=== PATIENT | female | born 1985 | race Caucasian/White ===

== ENCOUNTER 2016-10-16 10:28 | Emergency (ER) | payer OTHER ==
[~2016-10-16] VITALS: Ht 162.6 cm; Wt 88.5 kg
[~2016-10-16 10:28] MED LIST: AUGMENTIN 875-1 EACH PO; NORCO 5-325 TA1 EACH PO; PERCOCET 5-3251 EACH PO
[2016-10-16 10:37] VITALS: BP 126/84
--- NOTE | 2016-10-16 11:09 | ED THROAT/DENTAL COMPLAINT ---
History of Present Illness General Chief Complaint: Sore Throat, Dental Pain Stated Complaint: TOOTH ACHE X 2 DAYS Source: patient, old records Exam Limitations: no limitations Vital Signs & Intake/Output Vital Signs & Intake/Output Vital Signs Date Time Temp Pulse Resp B/P Pulse O2 O2 Flow FiO2 Ox Delivery Rate 10/16 1037 98.3 90 20 126/84 98 Room Air ED Intake and Output 10/17 0000 10/16 1200 Intake Total Output Total Balance Patient 195 lb Weight Allergies Coded Allergies: metoclopramide (From REGLAN) (Intermediate, ANXIETY 03/18/16) ondansetron (From ZOFRAN ( HYDROCHLORIDE)) (Intermediate, PANIC ATTACKS ) prochlorperazine (From COMPAZINE) (Intermediate, PANIC ATTACKS 03/18/16) Reconcile Medications Amoxicillin/Potassium Clav (Augmentin 875-125 Tablet) 875 MG-125 MG TABLET 1 TAB PO BID dental Oxycodone HCl/Acetaminophen (Percocet 5-325 MG Tablet) 5 MG-325 MG TABLET 1 TAB PO BID PRN breakthrough pain Triage Note: PT TO ED C/O UPPER LEFT DENTAL PAIN SINCE SUNDAY. "I THINK IT'S INFECTED". Triage Nurses Notes Reviewed? yes Onset: Abrupt Duration: day(s): (2), constant Timing: recent history Injury Environment: home Severity: moderate Severity Numbers: 7 Modifying Factors: Worsens With: eating. Associated Symptoms: denies : No Patient currently breastfeeds: No HPI: 31-year-old female presents to ER for evaluation complaining of left upper dental pain for the past 3 days. Patient states she's had a history of similar pain in the past she called her dentist that however they were closed. Pain is worse with cold air eating and palpation she's been taking Advil without improvement. No difficulty swallowing no sore throat. No fever no chills she denies any other symptoms that aren't no other modifying factors or associated symptoms or radiation of pain. (CLEMENTINA RHOADES,KIKI) Past History Travel History Traveled to [place] past 21 day No Medical History Any Pertinent Medical History? see below for history Neurological: NONE EENT: NONE Cardiovascular: NONE Respiratory: asthma Gastrointestinal: NONE Hepatic: NONE Renal: NONE Musculoskeletal: NONE Psychiatric: NONE Endocrine: NONE Blood Disorders: NONE Cancer(s): NONE Surgical History Surgical History: N Psychosocial History What is your primary language Thai Tobacco Use: Current Daily Use Daily Tobacco Use Amount/Type: => 5 Cigarettes daily ETOH Use: denies use Illicit Drug Use: denies illicit drug use Family History Hx Contributory? No (KIKI FLORES) Review of Systems Review of Systems Constitutional: Reports: see HPI. All Other Systems: Reviewed and Negative Comments Review of systems: See HPI, All other systems negative. Constitutional, no chills no fever, no malaise HEENT: No visual changes no sore throat no congestion Cardiovascular: No chest pain , no palpitation Skin, no rashes, no change in skin Respiratory: No dyspnea no cough no sputum GI: No nausea no vomiting : No dysuria Muscle skeletal: No joint pain, no back pain, no neck pain, Neurologic: No numbness no headache Psych: No stress Heme/endocrine: No bruising no bleeding Immunology: No lymphadenopathy (KIKI FLORES) Physical Exam Physical Exam General Appearance: well developed/nourished, no apparent distress, alert, awake , comfortable Mouth/Throat: pharynx normal Comments: Well-developed well-nourished patient in no apparent distress. Head/Face: Atraumatic, no maxillary/frontal sinus tenderness, no facial swelling Eyes: PERRL, EOMI, no conjunctival injection Ear:External auditory canals clear Nose: atraumatic.Normal inspection Throat: Moist mucous membranes.Pharynx normal. No pharyngeal erythema/exudate seen. No stridor/drooling or assymetry. No swelling or edema. Poor dentition, no abscess Neck: Supple, no lymphadenopathy, FROM Back: FROM, Nontender Cardiovascular: Regular rate and rhythms no murmurs Respiratory: No respiratory distress. Patient speaking in full complete sentences. Breath sounds clear to auscultation bilaterally: NO W/R/R Extremities: full range of motion Neuro: Alert and oriented x3 Skin: Warm & dry;No appreciable rash on exposed skin Psych: Mood affect normal, normal memory normal judgment. Core Measures ACS in differential dx? No Severe Sepsis Present: No Septic Shock Present: No (KIKI FLORES) Progress Differential Diagnosis: carious tooth, odontogenic abscess, gilson-tonsillar abscess, pharyngeal for. body, stomatitis/gingivitis, strep pharyngitis, tooth fracture Plan of Care: Discussed with patient need for close follow-up with dentist prescription for Augmentin provided, they feel comfortable plan answer all her questions cleared for discharge (KIKI FLORES) Departure Departure Time of Disposition: 1133 Disposition: HOME OR SELF CARE Condition: Stable Clinical Impression Primary Impression: Pain, dental Referrals: PATIENT HAS NO PRIMARY CARE DR (PCP/Family) Additional Instructions: Follow-up with your dentist. Augmentin as directed Percocet for breakthrough pain. These prescriptions were sent to [facility] pharmacy Follow-up with your Dentist and primary care physician this week. Return to the emergency room at any time sooner if you have worsening of your symptoms or any other concerns. you were prescribed a narcotic use caution as this medication is highly addictive and will make you drowsy use for breakthrough pain only. No driving, drinking alcohol or operating machinary when taking. Departure Forms: Customer Survey General Discharge Information Prescriptions: Current Visit Scripts Amoxicillin/Potassium Clav (Augmentin 875-125 Tablet) 1 TAB PO BID #14 TAB Oxycodone HCl/Acetaminophen (Percocet 5-325 MG Tablet) 1 TAB PO BID PRN breakthrough pain #8 TAB (KIKI FLORES) PA/CURING BIN OPERATOR Co-Sign Statement Statement: ED Attending supervision documentation- [] I saw and evaluated the patient. I have also reviewed all the pertinent lab results and diagnostic results. I agree with the findings and the plan of care as documented in the PA's/CURING BIN OPERATOR's documentation. [X] I have reviewed the ED Record and agree with the PA's/CURING BIN OPERATOR's documentation. [] Additions or exceptions (if any) to the PAs/CURING BIN OPERATOR's note and plan are summarized below: [] (REINALDO WEISS,MARIO ALBERTO)
[2016-10-16] MEDS ORDERED: PERCOCET 5-3251 EACH PO (11:35)
[2016-10-16] MEDS ORDERED: AUGMENTIN 875-1 EACH PO (11:35)
== END 2016-10-16 11:39 ==
LOC: ERH 10:28
DX: K08.89 Other specified disorders of teeth and supporting structures (principal)

== ENCOUNTER 2018-03-29 17:23 | Emergency (ER) | payer OTHER ==
--- NOTE | 2018-03-29 17:59 | ED GENERAL ADULT ---
See Addendum History of Present Illness General Chief Complaint: Nausea, Vomiting, Diarrhea Stated Complaint: NVD,"BODY KEEPS CRAMPING UP" Source: patient Exam Limitations: no limitations Vital Signs & Intake/Output Vital Signs & Intake/Output Vital Signs Date Time Temp Pulse Resp B/P B/P Pulse O2 O2 Flow FiO2 Mean Ox Delivery Rate 03/29 1736 98.7 75 22 153/100 95 Room Air Allergies Coded Allergies: metoclopramide (From REGLAN) (Intermediate, ANXIETY 03/18/16) ondansetron (From ZOFRAN ( HYDROCHLORIDE)) (Intermediate, PANIC ATTACKS ) prochlorperazine (From COMPAZINE) (Intermediate, PANIC ATTACKS 03/18/16) Reconcile Medications Amoxicillin/Potassium Clav (Augmentin 875-125 Tablet) 875 MG-125 MG TABLET 1 TAB PO BID dental Oxycodone HCl/Acetaminophen (Percocet 5-325 MG Tablet) 5 MG-325 MG TABLET 1 TAB PO BID PRN breakthrough pain Triage Note: PER PT WOKE UP THIS AFTERNOON, VOMITTING MUSCLES CRAMPING AND BODY ACHES NO URINE CO CO BACK PAIN, FACE NUMBNESS Triage Nurses Notes Reviewed? yes : No Patient currently breastfeeds: No HPI: Patient is a 33-year-old female whose only past medical history is asthma, who presents today with nausea, vomiting, and diarrhea. She reports that for the past several months she has been alternating between several days of severe constipation which is followed by a switch to diarrhea and subsequent complete evacuation of her bowels with severe cramping abdominal pain. She had a similar episode today, and awoke from a nap with generalized myalgias and cramping, as well as bilateral carpopedal spasm in her hands which is a new feature for her. She still has the spasm at present at the time of my initial encounter. She is clearly upset and quite distressed regarding her symptoms. She did call and make an appointment with gastroenterology but not until April 09. Past History Travel History Traveled to [place] past 21 day No Medical History Any Pertinent Medical History? see below for history Neurological: NONE EENT: NONE Cardiovascular: NONE Respiratory: asthma Gastrointestinal: NONE Hepatic: NONE Renal: NONE Musculoskeletal: NONE Psychiatric: NONE Endocrine: NONE Blood Disorders: NONE Cancer(s): NONE Surgical History Surgical History: none, N Psychosocial History What is your primary language Jamaican Tobacco Use: Never used Family History Hx Contributory? No Review of Systems Review of Systems Constitutional: Reports: see HPI, malaise, weakness. EENTM: Reports: no symptoms. Respiratory: Reports: no symptoms. Cardiovascular: Reports: no symptoms. GI: Reports: no symptoms. Genitourinary: Reports: no symptoms. Musculoskeletal: Reports: back pain, muscle pain. Denies: gout, joint pain, joint swelling, neck pain. Skin: Reports: no symptoms. Neurological/Psychological: Reports: no symptoms. Hematologic/Endocrine: Reports: no symptoms. Immunologic/Allergic: Reports: no symptoms. All Other Systems: Reviewed and Negative Physical Exam Physical Exam General Appearance: well developed/nourished, alert, awake, anxious, mild distress Comments: HEENT: Inspection of the head reveals a normocephalic cranium with no signs of trauma. Ophtho: Extraocular muscles are intact and pupils are equal and reactive to light bilaterally with no afferent pupillary defect. The sclera are noninjected , and there is no obvious discharge. Neck: The trachea is midline, there is no obvious asymmetry or mass over the thyroid, and there is no midline cervical spine tenderness Respiratory: Despite scattered wheezing, the patient exhibits no signs of labored breathing. Cardiac: Regular rhythm and non-tachycardic without appreciable murmurs on auscultation. No obvious JVD. GI: Examination of the abdomen reveals no significant focal tenderness in any of the four quadrants. There is negative De Los Santos's sign, negative McBurney's point tenderness, negative [place] sign, negative Noe-Edmond sign, and no signs of peritonitis whatsoever on percussion or deep palpation. The skin is intact with no sign of trauma or infection. : Deferred Musculoskeletal: Diffuse subjective myalgias, bilateral carpopedal spasm of the hands. Neuro: The patient is oriented to person, place, time, and situation, with no obvious focal motor deficits. There were no sensory deficits, and the patient exhibit purposeful movement of all 4 extremities. Cranial nerves II through XII are intact, and gait is normal. Behavioral: Anxious regarding her symptoms. Dermatologic: Dermatologic examination reveals no diffuse rashes or exanthems, no petechiae, no ecchymoses, and no other signs of erythema or infection. Core Measures ACS in differential dx? No CVA/TIA Diagnosis: No Sepsis Present: No Sepsis Focused Exam Completed? No Progress Differential Diagnoses I considered the following diagnoses in my evaluation of the patient: Irritable bowel syndrome, inflammatory bowel disease, hypocalcemia, hypercalcemia, other metabolic dyscrasia, multiple other possible abnormalities. Plan of Care: Orders Procedure Date/time Status IONIZED CALCIUM Ref$ 03/29 175 Active CALCIUM 03/29 175 Active EKG 03/29 175 Active URINALYSIS 03/29 173 Active LIPASE 03/29 173 Complete HUMAN BETA HCG SCREEN 03/29 173 Complete COMPREHENSIVE METABOLIC PANEL 03/29 173 Complete CBC WITHOUT DIFFERENTIAL 03/29 1733 Complete AMYLASE 03/29 1733 Complete Laboratory Tests 03/29/18 1838: Ionized Calcium Pending 03/29/18 183: Calcium Pending 03/29/18 175: Anion Gap 11, Estimated GFR > 60, BUN/Creatinine Ratio 6.7 L, Glucose 100 H, Calcium 9.2, Total Bilirubin 1.3, AST 183 H, ALT 109 H, Alkaline Phosphatase 85, Total Protein 7.1, Albumin 4.2, Globulin 2.9, Albumin/Globulin Ratio 1.4, Amylase 33, Lipase 126, Total Beta HCG NEGATIVE, CBC w Diff NO MAN DIFF REQ, RBC 4.78, MCV 94.1, MCH 32.3 H, MCHC 34.3, RDW 14.9 H, MPV 7.4, Gran % 83.0 H, Lymphocytes % 10.6 L, Monocytes % 5.9, Eosinophils % 0.3, Basophils % 0.2, Absolute Granulocytes 7.1 H, Absolute Lymphocytes 0.9 L, Absolute Monocytes 0.5, Absolute Eosinophils 0, Absolute Basophils 0 Initial ED EKG: normal axis, normal intervals, normal p-waves, normal sinus rhythm, NSR, no ST T wave changes Hand-Off Endorsed To: Rashawn WEISS,Julian Raya Comments: Patient presents with nausea, vomiting, and diarrhea which followed an episode of constipation. This pattern has been present for some weeks and she has a gastroenteritis follow-up appointment. She does have carpopedal spasm which concerns me for hypocalcemia. Laboratory studies pending at the time of transition of care at shift change. Dr. Morocho assumed care and will follow- up on the laboratory studies and make appropriate disposition. If negative, the plan is for discharge home with Madie to continue her workup with GI in the outpatient setting. Departure Departure Time of Disposition: 1899 Disposition: STILL A PATIENT Condition: Stable Clinical Impression Primary Impression: Diarrhea Qualifiers: Diarrhea type: unspecified type Qualified Code: R19.7 - Diarrhea, unspecified Referrals: Patient Has No Primary Care Dr (PCP/Family) Departure Forms: Customer Survey General Discharge Information Critical Care Note Critical Care Note Critical Care Time: non-applicable
[2018-03-29 18:08] LABS: ABSOLUTE BASOPHIL COUNT 0 /CUMM (0.0-0.2); ABSOLUTE EOSINOPHIL COUNT 0 /CUMM (0.0-0.7); ABSOLUTE GRANULOCYTE CT 7.1 /CUMM (1.4-6.5); ABSOLUTE LYMPH COUNT 0.9 /CUMM (1.2-3.4); ABSOLUTE MONOCYTE COUNT 0.5 /CUMM (0.10-0.60); BASOPHIL % 0.2 % (0.0-2.0); EOSINOPHIL % 0.3 % (0-5); MEAN CORPUSCULAR HGB 32.3 PG (27.0-31.0); MEAN CORPUSCULAR HGB CONC 34.3 G/DL (33.0-37.0); MEAN CORPUSCULAR VOLUME 94.1 FL (81.0-99.0); MEAN PLATELET VOLUME 7.4 FL (7.4-10.4); PLATELET COUNT 251 /CUMM (130-400); RBC DISTRIBUTION WIDTH 14.9 % (11.5-14.5); RED BLOOD CELL CT 4.78 /CUMM (4.20-5.40); WHITE BLOOD CELL COUNT 8.6 /CUMM (4.8-10.8)
[2018-03-29] MEDS ORDERED: DICYCLOMINE HCL10 M1 PO (21:50)
[2018-03-29] MEDS ORDERED: VENTOLIN HFA18 GM INH (21:50)
[2018-03-29 22:10] VITALS: BP 140/69
== END 2018-03-29 22:11 | disposition still patient (30) ==
LOC: ERH 17:23
PROVIDERS: Physician Assistant Medical
DX: R19.7 Diarrhea, unspecified (principal)
CPT/HCPCS: 81001; 93005; 93010; 96374; J1885